=== PATIENT | male | born 1955 | race Caucasian/White ===

== ENCOUNTER → 2019-06-03 | Outpatient (CLI) | payer BC ==
[~2019-06-03] MED LIST: AMARYL4 MG PO; CIPRO500 MG PO; JANUMET 500 MG-1 TA1 PO; LOTENSIN10 MG PO; NEXIUM40 MG PO; PAXIL CR37.5 MG PO
--- NOTE | ~2019-06-03 | HM ---
[place], [place] HOLTER MONITOR REPORT NAME: TAMIKO ALVARES UNIT #: [id number] ROOM: DOCTOR: CLAUDIA DIAZ [facility] BIRTHDATE: [birth year] DOS: 06/03/2019 HOLTER MONITOR REPORT FINDINGS: 1. Sinus. 2. Supraventricular ectopy. 3. Ventricular ectopy. 4. Occasional supraventricular tachycardia. 5. No sustained or nonsustained ventricular tachycardia noted. No conduction abnormalities noted. May suggest beta blocking agents and optimize the medical therapy and exercise program and reduce the stimulants such as caffeine, alcohol or tobacco. We will follow the patient as an outpatient. JEWEL TAYLOR MD CM:HOLTER:HOLTER MONITOR REPORT [id number] JEWEL TAYLOR MD [facility]
== END | disposition home or self-care (01) ==
LOC: CARD 06-02 09:00
DX: I48.0 Paroxysmal atrial fibrillation (principal)